=== PATIENT | female | born 1960 | race Caucasian/White ===

== ENCOUNTER → 2017-01-10 15:08 | Outpatient (CLI) | payer BC ==
[2012-08-18 11:17] VITALS: BMI 26.2
== END | disposition home or self-care (01) ==
LOC: D.RAD 01-06 11:00
DX: M25.552 Pain in left hip (principal)

== ENCOUNTER → 2017-01-13 12:42 | Outpatient (CLI) | payer BC ==
[2012-08-18 11:17] VITALS: BMI 26.2
== END | disposition home or self-care (01) ==
LOC: D.MRI 12:42
DX: M25.552 Pain in left hip (principal)

== ENCOUNTER → 2018-08-08 09:03 | Outpatient (CLI) | payer BC ==
[2012-08-18 11:17] VITALS: BMI 26.2
== END | disposition home or self-care (01) ==
LOC: D.US 09:03
DX: I12.9 Hypertensive chronic kidney disease with stage 1 through stage 4 chronic kidney disease, or unspecified chronic kidney disease (principal); N18.4 Chronic kidney disease, stage 4 (severe); D64.9 Anemia, unspecified; N25.81 Secondary hyperparathyroidism of renal origin; Z68.26 Body mass index [BMI] 26.0-26.9, adult

== ENCOUNTER → 2019-10-19 13:56 | Outpatient (CLI) | payer BC ==
[2012-08-18 11:17] VITALS: BMI 26.2
== END | disposition home or self-care (01) ==
LOC: D.MRI 13:56
PROVIDERS: ATTEND Orthopaedic Surgery
DX: M25.562 Pain in left knee (principal)

== ENCOUNTER → 2020-03-05 09:35 | Outpatient (CLI) | payer BC ==
[2012-08-18 11:17] VITALS: BMI 26.2
== END | disposition home or self-care (01) ==
LOC: D.MRI 09:30
PROVIDERS: ATTEND Internal Medicine
DX: N18.4 Chronic kidney disease, stage 4 (severe) (principal); Q61.2 Polycystic kidney, adult type

== ENCOUNTER → 2020-04-02 15:25 | Outpatient (CLI) | payer BC ==
[2012-08-18 11:17] VITALS: BMI 26.2
== END | disposition home or self-care (01) ==
LOC: D.MRI 15:25
PROVIDERS: ATTEND Anesthesiology
DX: G89.4 Chronic pain syndrome (principal); M54.2 Cervicalgia